=== PATIENT | male | born 1980 | race Caucasian/White ===

== ENCOUNTER 2017-05-10 03:56 | Observation (INO) | payer BC ==
[~2017-05-10] VITALS: Ht 165.1 cm; Wt 76.2 kg
[2017-05-10] VITALS (11 sets, daily range): BP systolic 102–118; BP diastolic 63–83; PULSE 60–82; RESP 18–19; Ht 165.1 cm; Wt 76.2 kg
[2017-05-10] MEDS ORDERED: NITROGLYCERIN (SL) 0.4 MG TAB SL PRN (06:30)
[2017-05-10] MEDS ORDERED: ACETAMINOPHEN 325 MG TAB PO PRN (06:30)
[2017-05-10] MEDS ORDERED: ONDANSETRON 4 MG INJ IV PRN (06:30)
[2017-05-10] MEDS ORDERED: ALBUTEROL/IPRATROPIUM (NEB) 3 ML AMP HHN PRN (06:30)
[2017-05-10] MEDS ORDERED: NACL 0.9% 3 ML SYG IV SCH (06:30)
--- NOTE | 2017-05-10 06:34 | HP ---
Date/Time of Note Date/Time of Note DATE: 05/10/17 TIME: 06:30 Assessment/Plan VTE Prophylaxis VTE Prophylaxis Intervention: SCD's Lines/Catheters IV [facility]from [facility] Saline Lock Urinary Cath still in place: No Assessment/Plan Assessment/Plan 1. Chest pain, rule out ACS Continue telemetry monitoring Trend troponin Supplemental oxygen, aspirin with as needed nitro morphine. If his blood pressure and heart rate allows, will add a beta-kei. Obtain 12-lead EKG and 2D echo Cardiology consult as needed Notes that patient has extensive cardiac history (please read HPI) 2. Rectal bleeding -Patient has been having bloody bowel movement for the past 2 days, described as large amounts and bright red -Check FOBT -GI consult -No anticoagulation HPI/ROS Admit Date/Time Admit Date/Time May 10, 2017 at 05:04 Hx of Present Illness This is a 36-year-old male was probable history of GERD on PPI who presented to an outside hospital ER complaining of chest pain 1 day. He was transferred to [facility] because of insurance reasons. Pain is slightly left-sided, pressure-like with associated shortness of breath. Shortness of breath is worse with exertion but chest pain remains the same. He also reported vague headache mostly localized in the frontal area. At the outside hospital EKG was no ST-T wave abnormalities and first troponin was negative. Initially he decided to leave AGAINST MEDICAL ADVICE but finally agreed to be transferred to [facility]. He had a negative stress test at [facility] in 2016. He has extensive family history of cardiac disease on his father's side. His father was diagnosed with heart disease in his early 50s. He has a cousin who had a heart transplant 12 years ago when he was in his 20s. He has 3 uncles who have had an open heart surgery including one who is being considered for his second heart transplant. On discussing about his GERD, he reported that over the past 2 days he has been having bloody bowel movement, described as "a lot of blood" and is bright red. Denied a history of GI bleed. Denied hematemesis. He never had an EGD or colonoscopy before. . PMH/Family/Social Social History Smoking Status: Current every day smoker Exam/Review of Systems Vital Signs Vitals Vital Signs Date Time Temp Pulse Resp B/P Pulse Ox O2 Delivery O2 Flow Rate FiO2 05/10/17 06:22 97.6 69 18 105/76 97 Room Air Exam Constitutional: alert, oriented, well developed Head: atraumatic, normocephalic Eyes: EOMI, PERRL Respiratory: clear to auscultation, normal air movement Cardiovascular: nl pulses, regular rate and rhythm Gastrointestinal: non-tender, soft Extremities: normal pulses Medications Medications Current Medications Ondansetron HCl (Zofran Inj) 4 mg Q6H PRN IV NAUSEA AND/OR VOMITING; Start 04/16 at 06:30; Status UNV Aspirin (Aspirin) 81 mg DAILY PO ; Start 05/10/17 at 09:00; Status UNV Nitroglycerin (Nitroglycerin (Sl Tab) 0.4 Mg) 1 tab Q5M PRN SL CHEST PAIN; Start 05/10/17 at 06:30; Status UNV Acetaminophen (Tylenol Tab) 650 mg Q6H PRN PO PAIN LEVEL 1-3 OR FEVER; Start 05/10/17 at 06:30; Status UNV Morphine Sulfate (morphine) 2 mg Q4H PRN IV PAIN LEVEL 7-10; Start 05/10/17 at 06:30 Famotidine (Pepcid) 20 mg Q12 PO ; Start 05/10/17 at 09:00; Status UNV Enoxaparin Sodium (Lovenox) 40 mg DAILY SC ; Start 05/10/17 at 09:00; Status UNV PETER PETERSON MD May 10, 2017 06:34
[2017-05-10] MEDS: morphine 2 MG INJ IV PRN ×3 (06:38→19:42)
[2017-05-10 07:28] LABS: BASOPHILS % 0.4 % (0.0-2.0); EOSINOPHILS # 0.1 10^3/ul (0.0-0.5); EOSINOPHILS % 1.1 % (0.0-7.0); HEMATOCRIT 48.3 % (42.0-52.0); HEMOGLOBIN 16.5 g/dl (14.0-18.0); LYMPHOCYTES # 3.9 10^3/ul (0.8-2.9); LYMPHOCYTES % 39.9 % (15.0-51.0); MEAN CORPUSCULAR HGB CONC 34.2 g/dl (32.0-37.0); MEAN CORPUSCULAR VOLUME 90.6 fl (82.0-101.0); MEAN PLATELET VOLUME 10.1 fl (7.4-10.4); MONOCYTE # 0.7 10^3/ul (0.3-0.9); MONOCYTES % 7.4 % (0.0-11.0); NEUTROPHILS % 50.9 % (39.0-77.0); PLATELET COUNT 258 10^3/UL (140-415); RED BLOOD COUNT 5.33 10^6/ul (4.70-6.10); WHITE BLOOD COUNT 9.8 10^3/ul (4.8-10.8)
[2017-05-10 07:53] LABS: ALBUMIN 3.9 g/dl (3.3-4.9); ALBUMIN/GLOBULIN RATIO 1.34; BILIRUBIN,INDIRECT 0.5 mg/dl (0-1.1); BILIRUBIN,TOTAL 0.5 mg/dl (0.2-1.3); CALCIUM 9.1 mg/dl (8.4-10.2); CREATININE 0.88 mg/dl (0.61-1.24); MAGNESIUM 1.8 mg/dl (1.7-2.5); POTASSIUM 4.5 mmol/L (3.5-5.1); TOTAL PROTEIN 6.8 g/dl (6.1-8.1)
[2017-05-10 07:58] LABS: CK-MB 0.63 ng/ml (0.0-2.4)
[2017-05-10 08:08] LABS: TROPONIN-I 0.016 ng/ml (0.00-0.12)
[2017-05-10 08:21] LABS: THYROID STIMULATING HORMONE 4.39 MIU/L (0.465-4.680)
[2017-05-10] MEDS ORDERED: FAMOTIDINE 20 MG TAB PO SCH (09:00)
[2017-05-10] MEDS ORDERED: ENOXAPARIN 40 MG/0.4 ML SYG SC SCH (09:00)
[2017-05-10] MEDS ORDERED: ASPIRIN 81 MG TAB PO SCH (09:00)
--- NOTE | 2017-05-10 10:42 | RADRPT ---
Echocardiogram Report Patient Name: SHASHANK BLAS Gender: Male Date: 1980 Study Date: 10-May-2017 Financial Services Associate: Carl [facility] Location: 5545 Ref. Physician: PETER PETERSON Quality: Adequate Procedures: Transthoracic echocardiogram with complete 2D, M-Mode, and doppler examination. Indications: Chest Pain. 2D/M Mode Doppler Measurement Value Normal Ranges Measurement Value Normal Ranges LVIDd 2D 4.5 3.5 - 5.6 cm AV Peak Jose 1.0 m/sec LVIDs 2D 2.9 2.1 - 4.1 cm AV Peak PG 4.0 mmHg FS 2D 35.2 % LVOT Peak Jose 0.7 m/sec LVPWd 2D 1.1 0.6 - 1.1 cm LVOT Peak PG 2.0 mmHg IVSd 2D 1.0 0.6 - 1.1 cm MV E Peak Jose 0.8 m/sec IVS/LVPW 2D 1.0 MV A Peak Jose 0.6 m/sec AoR Diam 2D 2.8 2.0 - 3.7 cm MV E/A 1.3 LA/Ao 2D 1 0 - 1 MV Decel Time 211 msec EDV 2D 93.6 cm3 MV E/A 1.3 ESV 2D 25.4 cm3 TR Peak Jose 2.6 m/sec LA Dimen 2D 3.3 2.3 - 4.0 cm TR Peak PG 28.0 mmHg RVSP 31.0 mmHg Findings Left Ventricle: Normal left ventricular systolic function. Normal left ventricular cavity size. Normal left ventricular wall thickness. Ejection fraction is visually estimated at 55 %. Right Ventricle: Normal right ventricular size. Normal right ventricular systolic function. Left Atrium: The left atrium is normal in size. Right Atrium: The right atrium is normal in size. Mitral Valve: Normal appearance and function of the mitral valve with trace physiologic regurgitation. Aortic Valve: Normal appearance of the aortic valve. No significant aortic stenosis or insufficiency. Tricuspid Valve: Normal appearance of the tricuspid valve. Estimated peak PA systolic pressure 31 mmHg. There is mild tricuspid regurgitation. Pulmonic Valve: Normal pulmonic valve appearance. There is mild pulmonic regurgitation. Pericardium: Normal pericardium with no significant pericardial effusion. Aorta: Normal aortic root. IVC: Normal size and normal respiratory collapse consistent with normal right atrial pressure. Conclusions Normal left ventricular systolic function. Normal left ventricular cavity size. Normal left ventricular wall thickness. Ejection fraction is visually estimated at 55 %. Normal right ventricular size. Normal right ventricular systolic function. The left atrium is normal in size. The right atrium is normal in size. Estimated peak PA systolic pressure 31 mmHg. There is mild tricuspid regurgitation. No significant valvular stenosis or regurgitation seen of remaining visualized valves. Normal pericardium with no significant pericardial effusion. Electronically Signed By: Reza Andres 10-May-2017 10:41:00 -0800 Patient Name: SHASHANK BLAS Study Date: 10-May-[id number]
--- NOTE | 2017-05-10 12:04 | CONS ---
Date/Time of Note Date/Time of Note DATE: 05/10/17 TIME: 11:57 Assessment/Plan Assessment/Plan Additional Assessment/Plan Chest pain, headache Preserved ejection fraction Rectal bleeding -Patient with symptoms of chest discomfort since Saturday associated with arm pain and headache. Serial cardiac enzymes have been negative (troponin done yesterday at [facility] at 8:40 PM was 0.01). ECG with no significant ischemic abnormalities and echocardiogram with preserved ejection fraction. On review of medical records from [facility], patient with nuclear cardiac perfusion study performed September 2014 and December 2015 which were both negative for ischemia or infarct. Of note, patient also with rectal bleeding currently which she states "the toilet is full of blood". Patient awaiting GI evaluation. Patient with family history of premature coronary artery disease, given symptoms and history and possible need of GI procedure, would proceed with nuclear cardiac perfusion study. Consultation Date/Type/Reason Admit Date/Time May 10, 2017 at 05:04 Type of Consultation: cv Reason for Consultation Chest pain, arm pain and headache Hx of Present Illness This is a 36-year-old male with no significant past medical history presents with chest pain. Symptoms began approximately 3 days ago. Symptoms began at rest. Symptoms were chest pressure which was very severe associated with headache and numbness. The discomfort lasted for a few minutes. He also complains of a numbness-like sensation in his left arm that comes and goes. Activity does not worsen or improve his symptoms. He does also complain of a cough for 2 weeks which does exacerbate his chest discomfort at times. He also complains of a headache over the past few days which he thinks could be associated with this chest pain. He does complain of occasional shortness of breath but he is unsure of this is associated with his chest pain. He presented to an outside facility and because of its insurance reasons she was transferred to our facility. He does currently complain of chest discomfort which has been present since yesterday and is still currently present. It is at times sharp in nature at times aching at times pressure-like. He does also complain of rectal bleeding to as well. He states since Saturday, every time he has a bowel movement, the toilet is "full of blood". This is not blood just with wiping but in the actual bowel movement. 12 point review of systems was performed with all pertinent positives and negatives mentioned above and all else is negative Past Medical History Medical History: no pertinent history Past Surgical History Past Surgical Hx: appendectomy Family History Significant Family History: heart disease Social History Alcohol Use: none Smoking Status: Current every day smoker Drug Use: none Other Social History Currently not working Exam/Review of Systems Vital Signs Vitals Vital Signs Date Time Temp Pulse Resp B/P Pulse Ox O2 Delivery O2 Flow Rate FiO2 05/10/17 08:00 60 05/10/17 07:46 97.9 18 102/63 96 05/10/17 06:22 Room Air Exam Sleeping initially but currently awake unable to give history and follows commands Constitutional: alert, oriented, well developed Head: normocephalic Respiratory: clear to auscultation, normal air movement Cardiovascular: other (S1-S2 heard, no murmurs appreciated), regular rate and rhythm Gastrointestinal: bowel sounds, non-tender, soft Results Result Diagram: 05/10/17 0640 05/10/17 0640 Results 24 hrs Laboratory Tests Test 05/10/17 06:40 White Blood Count 9.8 Red Blood Count 5.33 Hemoglobin 16.5 Hematocrit 48.3 Mean Corpuscular Volume 90.6 Mean Corpuscular Hemoglobin 31.0 Mean Corpuscular Hemoglobin Concent 34.2 Red Cell Distribution Width 12.0 Platelet Count 258 Mean Platelet Volume 10.1 Neutrophils % 50.9 Lymphocytes % 39.9 Monocytes % 7.4 Eosinophils % 1.1 Basophils % 0.4 Nucleated Red Blood Cells % 0.0 Neutrophils # 5.0 Lymphocytes # 3.9 H Monocytes # 0.7 Eosinophils # 0.1 Basophils # 0.0 Nucleated Red Blood Cells # 0.0 Sodium Level 142 Potassium Level 4.5 Chloride Level 104 Carbon Dioxide Level 31 Anion Gap 12 Blood Urea Nitrogen 12 Creatinine 0.88 Glucose Level 81 Calcium Level 9.1 Magnesium Level 1.8 Total Bilirubin 0.5 Direct Bilirubin 0.00 Indirect Bilirubin 0.5 Aspartate Amino Transf (AST/SGOT) 32 Alanine Aminotransferase (ALT/SGPT) 77 H Alkaline Phosphatase 48 Creatine Kinase 91 Creatine Kinase Index 0.7 Creatinine Kinase MB (Mass) 0.63 Troponin I 0.016 Total Protein 6.8 Albumin 3.9 Globulin 2.90 Albumin/Globulin Ratio 1.34 Triglycerides Level 224 H Cholesterol Level 170 LDL Cholesterol, Calculated 104 HDL Cholesterol 21 L Cholesterol/HDL Ratio 8.0 Thyroid Stimulating Hormone (TSH) 4.390 Medications Medications Current Medications Ondansetron HCl (Zofran Inj) 4 mg Q6H PRN IV NAUSEA AND/OR VOMITING; Start 04/16 at 06:30 Aspirin (Aspirin) 81 mg DAILY PO ; Start 05/10/17 at 09:00 Nitroglycerin (Nitroglycerin (Sl Tab) 0.4 Mg) 1 tab Q5M PRN SL CHEST PAIN; Start 05/10/17 at 06:30 Acetaminophen (Tylenol Tab) 650 mg Q6H PRN PO PAIN LEVEL 1-3 OR FEVER; Start 05/10/17 at 06:30 Morphine Sulfate (morphine) 2 mg Q4H PRN IV PAIN LEVEL 7-10 Last administered on 05/10/17t 06:38; Admin Dose 2 MG; Start 05/10/17 at 06:30 Famotidine (Pepcid) 20 mg Q12 PO ; Start 05/10/17 at 09:00 Enoxaparin Sodium (Lovenox) 40 mg DAILY SC ; Start 05/10/17 at 09:00 Procedures Procedures ECG demonstrates sinus rhythm at 56 bpm, QRS 92 ms, no significant ischemic ST abnormalities Reza Andres DO May 10, 2017 12:04
--- NOTE | 2017-05-10 12:30 | QN ---
Documentation Comment No further chest pain. Patient with stable HH. However, he kept reporting every time he bleed with bowel movement. This is most likely hemorrhoidal etiology. However will request a GI consult. PLAN: -R/O ACS-For stress test today with . -F/u FOBT. -STOP LOVENOX. HOLD ASPIRIN FOR NOW.REPEAT HH. START PPI. PATIENT CURRENTLY FOR STRESS TEST WITH CARDS AND IS CLEARED FOR SCOPY IF INDICATED. Patient was seen in collaboration with . JERRY RODRÍGUEZ NP May 10, 2017 12:30
[2017-05-10] MEDS ORDERED: REGADENOSON 0.4 MG/5 ML SYG ONE (12:56)
--- NOTE | 2017-05-10 13:59 | EN ---
Date/Time of Note Date/Time of Note DATE: 05/10/17 TIME: 13:55 Event Note Cardiology Cardiology Event Note Gricelda scan ECG report 05/10/17 36 y/o male with chest pain Baseline ECG sinus bradycardia @ 59bpm, no significant ischemic ST-T wave abnormalities Baseline BP 128/82 Lexiscan administered as per protocol Symptoms of shortness of breath which resolved Peak HR 100 Peak blood pressure 128/82 ECG changes none ECG interpretation non-ischemic Reza Andres DO May 10, 2017 13:59
--- NOTE | 2017-05-10 15:03 | RADRPT ---
PROCEDURE: Lexiscan myocardial perfusion study CLINICAL INDICATION: 36 -year-old patient complaining of chest pain. TECHNIQUE: Lexiscan 0.4 mg intravenously separate acquisition gated myocardial perfusion SPECT usi ng Tc 99m Myoview 28.0 mCi intravenously at stress and Tc-99m Myoview, 9.0 mCi intravenously at rest was performed using the rest/stress sequence. Poststress Myoview SPECT images were obtained in the supine position. COMPARISON: No prior studies. FINDINGS: Perfusion images reveal no evidence of perfusion defects. Lexiscan post stress gated SPECT images demonstrate mild hypokinesis of the left ventricle. IMPRESSION: 1. No evidence of perfusion defects. 2. Mild hypokinesis of the left ventricle. 3. The left ventricle ejection fraction at stress is 44%. A call report was made to Dr. Andres at 03:00 p.m. on May 10, 2017. RPTAT: HH .Marisel Gerber MD, MD Date Time Electronically viewed and signed by .Marisel Gerber MD, on 05/10/2017 15:03 .Rolando/
[2017-05-10 16:03] LABS: HEMOGLOBIN 16.6 g/dl (14.0-18.0)
[2017-05-10] MEDS: PANTOPRAZOLE 40 MG INJ IV SCH (19:42)
[2017-05-11] VITALS (7 sets, daily range): BP systolic 103–121; BP diastolic 57–78; PULSE 65–82; RESP 18–20
[2017-05-11] MEDS: PANTOPRAZOLE 40 MG INJ IV SCH (05:44)
[2017-05-11 06:18] LABS: BASOPHILS % 0.5 % (0.0-2.0); EOSINOPHILS # 0.1 10^3/ul (0.0-0.5); EOSINOPHILS % 1.3 % (0.0-7.0); HEMATOCRIT 48.8 % (42.0-52.0); HEMOGLOBIN 16.7 g/dl (14.0-18.0); LYMPHOCYTES # 3.2 10^3/ul (0.8-2.9); LYMPHOCYTES % 38.6 % (15.0-51.0); MEAN CORPUSCULAR HEMOGLOBIN 31.1 pg (29.0-33.0); MEAN CORPUSCULAR HGB CONC 34.2 g/dl (32.0-37.0); MEAN CORPUSCULAR VOLUME 90.9 fl (82.0-101.0); MEAN PLATELET VOLUME 10.1 fl (7.4-10.4); MONOCYTE # 0.6 10^3/ul (0.3-0.9); MONOCYTES % 7.2 % (0.0-11.0); NEUTROPHIL # 4.4 10^3/ul (1.6-7.5); PLATELET COUNT 259 10^3/UL (140-415); RED BLOOD COUNT 5.37 10^6/ul (4.70-6.10); WHITE BLOOD COUNT 8.4 10^3/ul (4.8-10.8)
[2017-05-11 06:57] LABS: CALCIUM 8.7 mg/dl (8.4-10.2); CREATININE 0.82 mg/dl (0.61-1.24); MAGNESIUM 1.9 mg/dl (1.7-2.5); PHOSPHORUS 3.4 mg/dl (2.5-4.9); POTASSIUM 3.9 mmol/L (3.5-5.1)
--- NOTE | 2017-05-11 09:31 | CONS ---
Date/Time of Note Date/Time of Note DATE: 05/11/17 TIME: 09:29 Assessment/Plan Assessment/Plan Chief Complaint/Hosp Course Chest pain, headache, resolved No evidence of ischemia Preserved ejection fraction (EF from SPECT likely underestimated) Rectal bleeding Problems: Additional Assessment/Plan no change in cardiac regimen Consultation Date/Type/Reason Admit Date/Time May 10, 2017 at 05:04 Initial Consult Date Type of Consultation: cv 24 HR Interval Summary Free Text/Dictation resting, no chest pain, no sob, no palpitations Detailed Summary Respiratory: no complaints Cardiovascular: no complaints Gastrointestinal: no complaints Musculoskeletal: no complaints Neurologic: no complaints Lymphatic: no complaints Exam/Review of Systems Vital Signs Vitals Vital Signs Date Time Temp Pulse Resp B/P Pulse Ox O2 Delivery O2 Flow Rate FiO2 05/11/17 08:07 73 05/11/17 07:45 98.0 18 119/76 93 05/10/17 06:22 Room Air Intake and Output 05/10/17 05/10/17 05/11/17 15:00 23:00 07:00 Intake Total 500 ml 250 ml 60 ml Balance 500 ml 250 ml 60 ml Exam Psych: no complaints Head: atraumatic, normocephalic Neck: supple Respiratory: clear to auscultation Cardiovascular: regular rate and rhythm Gastrointestinal: soft Musculoskeletal: nl extremities to inspection Extremities: normal pulses Results Result Diagram: 05/11/17 0547 05/11/17 0547 Results 24 hrs Laboratory Tests Test 05/10/17 15:11 05/11/17 05:47 Hemoglobin 16.6 16.7 Hematocrit 48.0 48.8 White Blood Count 8.4 Red Blood Count 5.37 Mean Corpuscular Volume 90.9 Mean Corpuscular Hemoglobin 31.1 Mean Corpuscular Hemoglobin Concent 34.2 Red Cell Distribution Width 12.0 Platelet Count 259 Mean Platelet Volume 10.1 Neutrophils % 52.0 Lymphocytes % 38.6 Monocytes % 7.2 Eosinophils % 1.3 Basophils % 0.5 Nucleated Red Blood Cells % 0.0 Neutrophils # 4.4 Lymphocytes # 3.2 H Monocytes # 0.6 Eosinophils # 0.1 Basophils # 0.0 Nucleated Red Blood Cells # 0.0 Sodium Level 143 Potassium Level 3.9 Chloride Level 108 Carbon Dioxide Level 28 Anion Gap 11 Blood Urea Nitrogen 17 Creatinine 0.82 Glucose Level 110 Calcium Level 8.7 Phosphorus Level 3.4 Magnesium Level 1.9 Medications Medications Current Medications Ondansetron HCl (Zofran Inj) 4 mg Q6H PRN IV NAUSEA AND/OR VOMITING; Start 04/16 at 06:30 Aspirin (Aspirin) 81 mg DAILY PO ; Start 05/10/17 at 09:00; Status Future Hold Nitroglycerin (Nitroglycerin (Sl Tab) 0.4 Mg) 1 tab Q5M PRN SL CHEST PAIN; Start 05/10/17 at 06:30 Acetaminophen (Tylenol Tab) 650 mg Q6H PRN PO PAIN LEVEL 1-3 OR FEVER; Start 05/10/17 at 06:30 Morphine Sulfate (morphine) 2 mg Q4H PRN IV PAIN LEVEL 7-10 Last administered on 05/10/17 19:42; Admin Dose 2 MG; Start 05/10/17 at 06:30 Pantoprazole (Protonix Iv) 40 mg BID@06,18 IV Last administered on 05/11/17 05:44; Admin Dose 40 MG; Start 05/10/17 at 18:00 DAVID MARINO MD May 11, 2017 09:31
--- NOTE | 2017-05-11 10:58 | PDOCDIS ---
Discharge Instructions CONDITION Patient Condition: Stable HOME CARE INSTRUCTIONS: Diet Instructions: Low Fat /CholesterolYour diet recommendation is: HIGH FIBER DIET FOLLOW UP/APPOINTMENTS Follow-up Plan 1.Follow up with primary care physician in 1 week-Recommend outpatient GI/ endoscopy If you don't have one please let someone know, we can give you resources that may help you pick one. You may also call your insurance company to assign one to you. Review your medication list with your nurse before leaving and if you need new prescriptions please let your nurse know. I may have made changes to your home medications or given you new prescriptions, please let your primary doctor know as well. Stay compliant with your medications and report any side effects to your PCP or pharmacist. Return to the ER if you have any concerns and cannot reach your doctors or call your insurance company, they usually have a nurse that can help you. 2. Call 911 or go to the nearest emergency room if experiencing loss of consciousness, dizziness, chest pain, shortness of breath, vomiting/abdominal pain, speech difficulties, motor weakness or any unusual symptoms. JERRY RODRÍGUEZ NP May 11, 2017 10:58
[2017-05-11] MEDS ORDERED: PHEN28OI6 PR (11:04)
[2017-05-11] MEDS ORDERED: DOCU-144 PO (11:04)
[2017-05-11] MEDS ORDERED: PANT40TA3 PO (11:04)
--- NOTE | 2017-05-11 11:07 | DS ---
Date/Time of Note Date/Time of Note DATE: 05/11/17 TIME: 11:07 Discharge Summary Admission/Discharge Info Admit Date/Time May 10, 2017 at 05:04 Discharge Date/Time Discharge Diagnosis Chest pain, noncardiac, likely from costochondritis secondary to cough. Resolved. Negative Lexiscan stress test. Constipation and possible hemorrhoids. Stable. Patient Condition: Stable Consults , cardiology. Procedures 05/10/2017. Lexiscan stress test. IMPRESSION: 1. No evidence of perfusion defects. 2. Mild hypokinesis of the left ventricle. 3. The left ventricle ejection fraction at stress is 44%. Hospital Course This is a 36-year-old male with a past medical history of constipation and associated hemorrhoidal bleed, family history of heart diseases, who presented to the emergency room for evaluation of 3 day duration of chest pain and a cough which has been going on for 2 weeks. Patient was admitted to rule out acute coronary syndrome. Patient had cardiology evaluation. He had negative troponins, EKG negative for any ischemic events, 2D echocardiogram with ejection fraction 55%. Patient also had negative Lexiscan stress test. He did not have any further chest pain and was feeling back to baseline. Most likely cause of chest pain is secondary to costochondritis with cough which was resolved. There was also concern of rectal bleed from patient's history, however he did not have any melena, hematochezia or hematemesis or other bleeding episodes in-house. Patient reported to me that he had constipation and causing to bleed with constipation. For the past few days he did have constipation and his bowel movements were normal. His H&H remained stable at 16.5, 16.6 and 16.7. A stool OB was collected, however report was not available at this time. A GI consultation was requested, however patient wanted to be discharged as he reports that he does not have any bleeding at this time. At this point, it is reasonable to send patient home and he could possibly benefit from outpatient screening endoscopy. Otherwise, patient is medically stable to be discharged with lifestyle modification for constipation with fiber containing food, stool softeners and local hemorrhoidal cream for comfort. Disposition: Patient will be discharged home. He was instructed to follow-up with his primary care physician in 1 week. Patient was also instructed on diet regimen for triglyceride anemia. He was also instructed on a high-fiber diet to prevent constipation and associated bleed. Patient verbalized discharge instructions. Approximately 60 minutes was spent in coordinating the discharge on this patient. Patient was seen in collaboration with Dr. Her. Home Meds Active Scripts Phenyleph/Mineral Oil/Petrolat* (Preparation H* Oint) 28 Gm Oint.appl, 1 APPLIC [place] BID, #1 TUB Prov:RODRÍGUEZ,JERRY V. [employer] 05/11/17 Docusate Sodium* (Colace*) 100 Mg Capsule, 100 MG PO BID, #60 CAP Prov:RODRÍGUEZ,JERRY V. [employer] 05/11/17 Pantoprazole* (Protonix*) 40 Mg Tablet., 40 MG PO DAILY, #30 TAB Prov:RODRÍGUEZ,JERRY V. [employer] 05/11/17 Follow-up Plan 1.Follow up with primary care physician in 1 week-Recommend outpatient GI/ endoscopy If you don't have one please let someone know, we can give you resources that may help you pick one. You may also call your insurance company to assign one to you. Review your medication list with your nurse before leaving and if you need new prescriptions please let your nurse know. I may have made changes to your home medications or given you new prescriptions, please let your primary doctor know as well. Stay compliant with your medications and report any side effects to your PCP or pharmacist. Return to the ER if you have any concerns and cannot reach your doctors or call your insurance company, they usually have a nurse that can help you. 2. Call 911 or go to the nearest emergency room if experiencing loss of consciousness, dizziness, chest pain, shortness of breath, vomiting/abdominal pain, speech difficulties, motor weakness or any unusual symptoms. Primary Care Provider Julissa Schaefer Pending Labs Laboratory Tests Test 05/10/17 15:11 05/11/17 05:47 Hemoglobin 16.6g/dl (14.0-18.0) 16.7g/dl (14.0-18.0) Hematocrit 48.0% (42.0-52.0) 48.8% (42.0-52.0) White Blood Count 8.410^3/ul (4.8-10.8) Red Blood Count 5.3710^6/ul (4.70-6.10) Mean Corpuscular Volume 90.9fl (82.0-101.0) Mean Corpuscular Hemoglobin 31.1pg (29.0-33.0) Mean Corpuscular Hemoglobin Concent 34.2g/dl (32.0-37.0) Red Cell Distribution Width 12.0% (11.5-14.5) Platelet Count 60393^3/UL (140-415) Mean Platelet Volume 10.1fl (7.4-10.4) Neutrophils % 52.0% (39.0-77.0) Lymphocytes % 38.6% (15.0-51.0) Monocytes % 7.2% (0.0-11.0) Eosinophils % 1.3% (0.0-7.0) Basophils % 0.5% (0.0-2.0) Nucleated Red Blood Cells % 0.0/100WBC (0.0-0.0) Neutrophils # 4.410^3/ul (1.6-7.5) Lymphocytes # 3.210^3/ul (0.8-2.9) Monocytes # 0.610^3/ul (0.3-0.9) Eosinophils # 0.110^3/ul (0.0-0.5) Basophils # 0.010^3/ul (0.0-0.1) Nucleated Red Blood Cells # 0.010^3/ul (0.0-0.0) Sodium Level 143mmol/L (135-144) Potassium Level 3.9mmol/L (3.5-5.1) Chloride Level 108mmol/L (97-110) Carbon Dioxide Level 28mmol/L (21-31) Anion Gap 11 (8-16) Blood Urea Nitrogen 17mg/dl (7-20) Creatinine 0.82mg/dl (0.61-1.24) Glucose Level 110mg/dl (70-220) Calcium Level 8.7mg/dl (8.4-10.2) Phosphorus Level 3.4mg/dl (2.5-4.9) Magnesium Level 1.9mg/dl (1.7-2.5) JERRY RODRÍGUEZ NP May 11, 2017 11:07
--- NOTE | 2017-05-11 15:04 | RADRPT ---
Vent Rate: 66 bpm RR Interval: 0 msec [place] Interval: 148 msec QRS Duration: 92 msec QT Interval: 412 msec QTC Interval: 431 msec P-R-T [place]: 50 - 51 - 38 degrees Normal sinus rhythm Normal ECG No previous tracing available for comparison Electronically Signed By: Blair Vuong [id number]
== END 2017-05-11 11:34 | disposition home or self-care (01) ==
LOC: MS4 05:04 → INTOOBSV 05:04
PROVIDERS: ADMIT Internal Medicine; ATTEND Internal Medicine
DX: R07.89 Other chest pain (principal); K59.00 Constipation, unspecified; K64.9 Unspecified hemorrhoids; F17.200 Nicotine dependence, unspecified, uncomplicated; Z82.49 Family history of ischemic heart disease and other diseases of the circulatory system
CPT/HCPCS: 78452; 80048; 80053; 80061; 82270; 82550; 82553; 83735; 84100; 84443; 84484; 85014; 85018; 85025; 93005; 93017; 93306; A9500; A9505; C9113; J1650; J2270; J2785; Z7500; Z7610; G0378

== ENCOUNTER 2017-10-19 05:30 | Inpatient (IN) | END 2017-10-22 14:05 | disposition home or self-care (01) | DRG 669 ==

== ENCOUNTER 2017-12-20 22:28 | Observation (INO) | END 2017-12-22 12:30 | disposition home or self-care (01) ==